=== PATIENT | male | born 1970 | race Caucasian/White ===

== ENCOUNTER 2016-06-11 19:19 | Emergency (ER) | payer SELFPAY ==
[2016-06-11 19:25] VITALS: BP 160/97; BMI 20.4
[2016-06-11 20:14] LABS: BASOPHILS # (AUTO) 0.1 X10^3/uL (0.0-0.1); BASOPHILS % (AUTO) 2.2 % (0.2-1.0); EOSINOPHILS # (AUTO) 0.1 x10^3/uL (0.0-0.2); EOSINOPHILS % (AUTO) 0.9 % (0.9-2.9); HEMATOCRIT 42.2 % (42.0-54.0); HEMOGLOBIN 14.6 g/dL (13.5-18.0); LYMPHOCYTES # (AUTO) 2.5 X10^3/uL (1.3-2.9); LYMPHOCYTES % (AUTO) 37.5 % (21.0-51.0); MEAN CORPUSCULAR HEMOGLOBIN 32.3 pg (27.0-34.0); MEAN CORPUSCULAR HGB CONC 34.6 g/dL (33.0-35.0); MEAN CORPUSCULAR VOLUME 93.4 fL (80.0-100.0); MEAN PLATELET VOLUME 6.2 fL (7.4-11.0); MONOCYTES # (AUTO) 0.3 x10^3/uL (0.3-0.8); NEUTROPHILS # (AUTO) 3.6 x10^3/uL (2.2-4.8); NEUTROPHILS % (AUTO) 54.4 % (42.0-75.0); PLATELET COUNT 291 X10^3/uL (150.0-450.0); RED BLOOD COUNT 4.52 X10^6/uL (4.7-6.0); WHITE BLOOD COUNT 6.6 X10^3/uL (3.6-10.0)
[2016-06-11 20:24] LABS: ALANINE AMINOTRANSFERASE 53 Units/L (12-78); ALBUMIN 4.1 g/dL (3.4-5.0); ALKALINE PHOSPHATASE 72 Units/L (46-116); ASPARTATE AMINO TRANSFERASE 63 Units/L (15-37); BLOOD UREA NITROGEN 9 mg/dL (7-18); CARBON DIOXIDE 26.6 mmol/L (21-32); CHLORIDE 100 mmol/L (98-107); COR NA(FOR HYPERGLY) 141 mmol/L (136-145); CREATININE 0.77 mg/dL (0.70-1.30); GLUCOSE 146 mg/dL (65-99); SODIUM 140 mmol/L (136-145); TOTAL PROTEIN 9.3 g/dL (6.4-8.2); eGFR BLACK RACES > 60 (>60); eGFR NON BLACK RACES > 60 (>60)
--- NOTE | 2016-06-11 20:47 | RAD ---
Chest PA and lateral Indication: Vomiting. Findings: There is no pneumothorax, effusion or consolidation. Heart size is normal. Lungs are hyper inflated. Impression: COPD change without other acute abnormality seen. Reported By:
--- NOTE | 2016-06-11 22:44 | DR.GENAD ---
HPI - PCP Primary Care Physician: kylie - HPI Comment HPI Comment: PATIENT IS 46YR OLD WHITE MALE WITH HISTORY OF HEPATITIS C AND CHRONIC USE OF BCS WHO PRESENTS WITH HEMOPTESIS. ATE TONIGHT. COUGH AND STATED TO SPIT BRIGHT RED BLOOD. HEALING FROM FR[facility] FEMUR ABD TAKES BCS FOR PAIN. SMOKER FOR 25YRS, 1PK PER DAY. NO URI SYMTOMS. BRIGHT RED BLOOD NOTED IN EMESIS BAG IN ED. DENIES PAIN. EGD DONE WHEN HE HAD SURGERY FOR FRACTURE FEMUR, WAS NOT TOLD HE HAS ESOPHAGEAL VARISES. HE DRINK ALCOL OFTEN. - Complaint/Symptoms Chief Complaint Doctors Comments: COUGHING BRIGHT RED BLOOD TONIGHT. Chief Complaint:: "i just finished eating and after eating i coughed and spit up blood. this is the first time this has ever happened." - Nurses notes reviewed Nurses Notes Review: Yes - Source History Provided: Patient - Mode of Arrival Mode of Arrival: Ambulatory - Timing Onset of Chief Complaint: 06/11/16 Came on: Suddenly - Duration Duration: Constant Duration: Minutes - Severity Severity: Moderate PMH - PMH Past Medical History: No Past Medical History Comment: hepatitis c Past Surgical History: Yes Surgical History: Ortho Surgery - Family History History of Family Medical Conditions: No - Social History Type of Tobacco Use: Cigarettes Alcohol Use: Heavy, DAILY Do you use any recreational Drugs:: No Lives With: Mom Lives Where: Home - infectious screening Have you traveled outside the country in the last 6 months?: No Isolation: Standard ROS - Review of Systems Constitutional: No Symptoms Reported Eyes: No Symptoms Reported ENTM: negative: Ear Pain, Nose Discharge, Nose Congestion, Throat Pain Respiratoy: Non-Productive Cough, Hemoptysis. negative: Short of Breath, Wheezing Cardiovascular: No Symptoms Reported Gastrointestinal/Abdominal: No Symptoms Reported. negative: Abdominal Pain, Nausea Genitourinary: No Symptoms Reported. negative: Dysuria, Frequency, Hematuria Neurological: No Symptoms Reported Musculoskeletal: No Symptoms Reported Integumentary: No Symptoms Reported Hematologic/Lymphatic: No Symptoms Reported Endocrine: No Symptoms Reported All Other Systems: Reviewed and Negative PE - Vital Signs Vitals: Temperature 98.0 F Pulse Rate 115 Respiratory Rate 16 Blood Pressure 160/97 O2 Sat by Pulse Oximetry 98 - General Limitations: No Limitations General Appearance: Alert - Head Head Exam: Normal Inspection - Eyes Eye exam: Normal Appearance - ENT ENT Exam: Normal External Ear Exam External Ear Exam: Normal External Inspection TM/Canal Exam: Bilateral Normal Nose Exam: Normal Nose Exam Mouth Exam: Normal Inspection Throat Exam: Normal Inspection - Neck Neck Exam: Trachea Midline - Chest Chest Inspection: Symmetric Chest Wall Rise - Respiratory Respiratory Exam: Normal Lung Sounds Bilat Respiratory Exam: Bilateral Rhonchi, Lower Rhonchi - Cardiovascular Cardiovascular Exam: Regular Rate, Normal Rhythm, Normal Heart Sounds - Abdominal Exam Abdominal Exam: Normal Bowel Sounds, Soft. negative: Tenderness - Extremities Extremities Exam: Normal Inspection - Back Back Exam: Normal Inspection - Neurologic Neurological Exam: Alert, Oriented X3 - Psychiatric Psychiatric Exam: Anxious - Skin Skin Exam: Normal Color MDM - Additional Information Additional Information Obtained From: Family - Differential Diagnosis Differential Diagnosis: HEMOPTESIS Course - Treatment Treatment: SEE ORDERS. PATIENT DID NOT WISH TO BE TRANSFER TO A FACILITY WITH PULMONOLOGY DR. ZAMAN. - Education/Counseling Education/Counseling: Patient, Family, Education Educated On: Diagnosis ROR - Labs Reviewed Laboratory Results Reviewed?: Yes Result Diagrams: 06/11/16 20:05 06/11/16 20:05 Laboratory: WBC 6.6 X10^3/uL (3.6-10.0) 06/11/16 20:05 RBC 4.52 X10^6/uL (4.7-6.0) L 06/11/16 20:05 Hgb 14.6 g/dL (13.5-18.0) 06/11/16 20:05 Hct 42.2 % (42.0-54.0) 06/11/16 20:05 MCV 93.4 fL (80.0-100.0) 06/11/16 20:05 MCH 32.3 pg (27.0-34.0) 06/11/16 20:05 MCHC 34.6 g/dL (33.0-35.0) 06/11/16 20:05 RDW 14.0 % (11.6-16.5) 06/11/16 20:05 Plt Count 291 X10^3/uL (150.0-450.0) 06/11/16 20:05 MPV 6.2 fL (7.4-11.0) L 06/11/16 20:05 Neut % 54.4 % (42.0-75.0) 06/11/16 20:05 Lymph % 37.5 % (21.0-51.0) 06/11/16 20:05 [place] % 5.0 % (0.0-13.0) 06/11/16 20:05 Eos % 0.9 % (0.9-2.9) 06/11/16 20:05 Baso % 2.2 % (0.2-1.0) H 06/11/16 20:05 Neut # 3.6 x10^3/uL (2.2-4.8) 06/11/16 20:05 Lymph # 2.5 X10^3/uL (1.3-2.9) 06/11/16 20:05 [place] # 0.3 x10^3/uL (0.3-0.8) 06/11/16 20:05 Eos # 0.1 x10^3/uL (0.0-0.2) 06/11/16 20:05 Baso # 0.1 X10^3/uL (0.0-0.1) 06/11/16 20:05 Absolute Nucleated RBC 0.1 /100WBC 06/11/16 20:05 INR Target Range - 06/11/16 20:05 INR 0.94 (0.8-1.3) 06/11/16 20:05 PTT 25.9 SECONDS (22.9-36.5) 06/11/16 20:05 PTT Comment - 06/11/16 20:05 Sodium 140 mmol/L (136-145) 06/11/16 20:05 Corrected Sodium 141 mmol/L (136-145) 06/11/16 20:05 Potassium 3.5 mmol/L (3.5-5.1) 06/11/16 20:05 Chloride 100 mmol/L (98-107) 06/11/16 20:05 Carbon Dioxide 26.6 mmol/L (21-32) 06/11/16 20:05 BUN 9 mg/dL (7-18) 06/11/16 20:05 Creatinine 0.77 mg/dL (0.70-1.30) 06/11/16 20:05 Est GFR (MDRD) Af Amer > 60 (>60) 06/11/16 20:05 Est GFR (MDRD) Non-Af > 60 (>60) 06/11/16 20:05 Glucose 146 mg/dL (65-99) H 06/11/16 20:05 Calcium 9.0 mg/dL (8.5-10.1) 06/11/16 20:05 Corrected Calcium TNP 06/11/16 20:05 Total Bilirubin 0.30 mg/dL (0.2-1.0) 06/11/16 20:05 AST 63 Units/L (15-37) H 06/11/16 20:05 ALT 53 Units/L (12-78) 06/11/16 20:05 Alkaline Phosphatase 72 Units/L (46-116) 06/11/16 20:05 Total Protein 9.3 g/dL (6.4-8.2) H 06/11/16 20:05 Albumin 4.1 g/dL (3.4-5.0) 06/11/16 20:05 Globulin 5.2 g/dL (2.5-4.5) H 06/11/16 20:05 Albumin/Globulin Ratio 0.8 Ratio (1.1-2.1) L 06/11/16 20:05 - XRAY XRAY Interpreted by: Radiologist XRAY Findings: REPORT NOTED AND DISCUSS WITH PATIENT. - Diagnosis Discharge Problem: Hemoptysis - Discharge Plan Disposition: AGAINST MEDICAL ADVICE Condition: Stable - Follow ups/Referrals Follow ups/Referrals: NFD,None [Primary Care Provider] - 3 days - Instructions
[2016-06-11] MEDS ORDERED: NS 100 ML IV 100 ML IV ONE (23:41)
--- NOTE | 2016-06-12 00:25 | CT ---
CT chest with contrast Indication: Hemoptysis after eating. Technique: Helical images through the chest after IV contrast. Coronal and sagittal reformats provid ed. Findings: Limited images through the upper abdomen show fatty liver. Review of bone windows shows no osseous abnormality. Old right-sided rib fractures noted. Chest: Aortic arch and branch vessels are normal. No large esophagus abnormality seen, within the li mits of CT. Left ventricular hypertrophy suspected. Heart is otherwise normal. Central pulmonary art eries are patent. If there is no pneumothorax or effusion. No consolidation seen. Minimal scarring in the bases noted. Impression: 1. COPD change. 2. No other acute abnormality to explain the patient's symptoms. 3. Fatty liver suspected. Reported By:
== END 2016-06-12 01:22 | disposition left against medical advice (07) ==
LOC: ER 19:19
DX: R04.2 Hemoptysis (principal)
CPT/HCPCS: 36415; 71020; 71260; 80053; 85025; 85610; 85730; 96365; 99283; A4222

== ENCOUNTER 2016-08-09 21:49 | Emergency (ER) | payer SELFPAY ==
[2016-08-09 21:59] VITALS: BP 144/88; BMI 19.8
--- NOTE | 2016-08-09 22:15 | DR.GENAD ---
HPI - PCP Primary Care Physician: HARESH LIU - Complaint/Symptoms Chief Complaint:: FELL GOING UP DOOR STEPS AND HURTING IN LOWER BACK , HIP AREA , LEFT LEG. - Nurses notes reviewed Nurses Notes Review: Yes - Source History Provided: Patient, Parent - Mode of Arrival Mode of Arrival: Wheelchair - Timing Onset of Chief Complaint: 08/09/16 Came on: Suddenly - Duration Duration: Constant How lon Duration: Hours - Location Location: left leg , left elbow, back - Severity Severity: Mild - Modifying Factors Worsens:: movement - Associated Signs and Symptoms Associated Signs and Symptoms: abrasions - Other History Other History: femur fx, left leg fx in past, chronic back pain PMH - PMH Past Medical History: Yes Past Medical History: Hypertension Past Medical History Comment: HISTORY OF BLOOD CLOTS, LOTS OF BROKE BONES, CHRONIC BACK PAIN Past Surgical History: Yes Surgical History: Ortho Surgery - Family History History of Family Medical Conditions: No - Social History Type of Tobacco Use: Cigarettes Alcohol Use: Heavy Do you use any recreational Drugs:: No Lives With: Mom, Family Lives Where: Home - infectious screening Have you traveled outside the country in the last 6 months?: No Isolation: Standard ROS - Review of Systems Constitutional: No Symptoms Reported Eyes: No Symptoms Reported ENTM: No Symptoms Reported Respiratoy: Dry Cough (COPD) Cardiovascular: No Symptoms Reported Gastrointestinal/Abdominal: No Symptoms Reported Genitourinary: No Symptoms Reported Neurological: No Symptoms Reported Musculoskeletal: Back Pain (chronic), Elbow (left elbow abrasion,), Leg (left leg contusion, ) Integumentary: No Symptoms Reported Hematologic/Lymphatic: No Symptoms Reported Endocrine: No Symptoms Reported Psychiatric: No Symptoms Reported PE - Vital Signs Vitals: Temperature 98.0 F Pulse Rate 74 Respiratory Rate 18 Blood Pressure 144/88 O2 Sat by Pulse Oximetry 100 - General Limitations: No Limitations General Appearance: Alert, In No Apparent Distress - Head Head Exam: Normal Inspection - Eyes Eye exam: Normal Appearance, EOMI. negative: Scleral Icterus, Conjunctival Injection - ENT ENT Exam: Normal Exam External Ear Exam: Normal External Inspection - Neck Neck Exam: Normal Inspection, Full ROM, Trachea Midline - Respiratory Respiratory Exam: negative: Accessory Muscle Use, Respiratory Distress - Extremities Extremities Exam: Full ROM, Tenderness (left leg contusion, left arm abrasion, LBP). negative: Normal Inspection - Back Back Exam: Normal Inspection, Tenderness (Lumbar area) - Neurologic Neurological Exam: Alert, Oriented X3, CN II-XII Intact - Skin Skin Exam: Intact. negative: Normal Color ROR - XRAY XRAY Interpreted by: Radiologist XRAY Findings: pelvis: no fracture Left leg: no acute fx, olld screw fx - Diagnosis Discharge Problem: Contusion Qualifiers: Encounter type: initial encounter Contusion area: lower leg Laterality: left Qualified Code(s): S80.12XA - Contusion of left lower leg, initial encounter Abrasion forearm Qualifiers: Encounter type: initial encounter Laterality: left Qualified Code(s): S50.812A - Abrasion of left forearm, initial encounter - Discharge Plan Condition: Stable Prescriptions: Cephalexin [Keflex] 500 mg PO BID #10 capsule Tramadol HCl [ULTRAM 50 MG *] 50 mg PO TID PRN #12 tab PRN Reason: Pain - Follow ups/Referrals Follow ups/Referrals: NFD,None [Primary Care Provider] - 3 days - Instructions
[2016-08-09] MEDS ORDERED: ULTRAM PO ONE (22:21)
[2016-08-09] MEDS ORDERED: ULTRAM ONE (22:25)
--- NOTE | 2016-08-09 22:58 | RAD ---
Pelvis Indication: Left hip pain after fall Findings: Old right intertrochanteric fracture status post ORIF is noted. No cortical disruption or malalignment of the left hip identified. The pelvic ring is intact. There is no pubic symphyseal or SI joint diastasis. There is discogenic DJD at L4-5 with bulky left-sided bridging osteophytes. Impression: No evidence for acute pelvic or hip fracture. Previous right femoral fixation. L4-5 discogenic DJD. Reported By:
--- NOTE | 2016-08-09 22:58 | RAD ---
EXAM: Left Lower Extremity X-ray INDICATION: Pain COMPARISION: No comparison TECHNIQUE: PA and Lat, 2 view FINDINGS: There is a plate and screw fixation of a distal diaphysis fracture of the fibula. The fracture has h ealed. There is a bone screw located in the distal lower extremity traversing the fibula and tibia. The screw is broken there is a medial malleolar screw which is intact. No acute fracture or dislocat ion. The joint spaces are preserved. The soft tissues are normal. IMPRESSION: The bone screw traversing the fibula and tibia distally is broken. The lucency around the fractured screw suggests an old finding. No acute abnormality. Reported By:
== END 2016-08-09 23:25 | disposition home or self-care (01) | DRG 556 ==
LOC: ER 22:02
DX: M79.605 Pain in left leg (principal); M25.552 Pain in left hip; S80.12XA Contusion of left lower leg, initial encounter; S50.812A Abrasion of left forearm, initial encounter; W10.8XXA Fall (on) (from) other stairs and steps, initial encounter; Y93.89 Activity, other specified; Y92.89 Other specified places as the place of occurrence of the external cause
CPT/HCPCS: 72170; 73590; 99282; 99283

== ENCOUNTER 2017-01-09 09:53 | Inpatient (IN) | payer SELFPAY ==
[2017-01-09] MEDS ORDERED: NS 1000 ML 1,000 ML IV ONE ×2 (10:42→11:47)
[2017-01-09] MEDS ORDERED: NS 1000 ML 1,000 ML ONE ×2 (10:43→11:45)
--- NOTE | 2017-01-09 10:45 | DR.GENAD ---
HPI - PCP Primary Care Physician: HARESH FRANK.. FUR TINTER - Complaint/Symptoms Chief Complaint Doctors Comments: Patient has been sicke for 6-7 days assoicated with fever, nausea. Chief Complaint:: PTS MOTHER STATES " HE HAS BEEB SICK THE NIGHT BEFORE THANKSGIVING WITH A HIGH FEVER AND HE HAS BEEN TALKING TO HIS SELF AND MOVING THINGS AND MOPING THE FLOOR WITH NO WATER.. Self Treatment fo Chief Complaint: PTS SAYS HES AT THE DOCTORS OFFICE ,, PTS MOTHERS DOES NOT KNOW HOW HIGH HIS TEMP HAS BEEN BUT SHE SAYS ITS BEEN HIGH AND HE HAS BEEN COUGHING AND C/O LUNG PAIN .. - Source History Provided: Patient, Family Member - Mode of Arrival Mode of Arrival: Ambulatory - Timing Onset of Chief Complaint: 01/04/17 PMH - PMH Past Medical History: No Past Medical History: Hypertension Past Surgical History: Yes Surgical History: Ortho Surgery Past Surgical History Comment: RIGHT BROKE HIP THAT IS NOT HEALING WELL.. - Family History History of Family Medical Conditions: No - Social History Does patient currently use any type of tobacco product: Yes Have you used tobacco products in the last 12 months: Yes Type of Tobacco Use: None How many years tobacco product used: 30 Does any household member use tobacco: No Alcohol Use: None Do you use any recreational Drugs:: No Lives With: Family Lives Where: Home - infectious screening In the last 2 months have you had wt loss of >10#?: NO Have you had fever, night sweats or hemotysis?: No Have you traveled outside the country in the last 6 months?: No Isolation: Standard ROS - Review of Systems Constitutional: negative: Diaphoresis Eyes: No Symptoms Reported, See HPI ENTM: No Symptoms Reported Respiratoy: No Symptoms Reported Cardiovascular: No Symptoms Reported Gastrointestinal/Abdominal: No Symptoms Reported Genitourinary: No Symptoms Reported Neurological: No Symptoms Reported Musculoskeletal: No Symptoms Reported Integumentary: No Symptoms Reported Endocrine: No Symptoms Reported Psychiatric: No Symptoms Reported All Other Systems: Reviewed and Negative PE - Vital Signs Vitals: Temperature 99.0 F Pulse Rate [Apical] 134 Pulse Rate 146 Respiratory Rate 18 Blood Pressure [Right Arm] 155/68 Blood Pressure 92/51 O2 Sat by Pulse Oximetry 85 - General Limitations: No Limitations General Appearance: Alert, In No Apparent Distress - Head Head Exam: Normal Inspection, Atraumatic - Eyes Eye exam: Normal Appearance, PERRL, EOMI - ENT ENT Exam: Normal Exam, Normal Oropharynx External Ear Exam: Normal External Inspection TM/Canal Exam: Bilateral Normal Nose Exam: Normal Nose Exam Mouth Exam: Normal Inspection Throat Exam: Normal Inspection - Neck Neck Exam: Normal Inspection, Full ROM - Chest Chest Inspection: Normal Inspection - Respiratory Respiratory Exam: Normal Lung Sounds Bilat Respiratory Exam: Bilateral Clear to Auscultation - Cardiovascular Cardiovascular Exam: Regular Rate, Normal Rhythm - Abdominal Exam Abdominal Exam: Normal Inspection, Normal Bowel Sounds Abdominal Tenderness: negative: RUQ, RLQ, LUQ, LLQ, Epigastrium, Suprapubic, Diffuse, Mild, Moderate, Severe, Other - Extremities Extremities Exam: Normal Inspection, Full ROM - Back Back Exam: Normal Inspection - Neurologic Neurological Exam: Alert, Oriented X3, CN II-XII Intact - Psychiatric Psychiatric Exam: Normal Affect, Normal Mood, Depressed - Skin Skin Exam: Warm, Dry, Intact Course - Reevaluation 1st: Unchanged - Consultation Called: 12:00 (Dr Nava agreed to admit for further evaluation and treatment) ROR - Labs Reviewed Result Diagrams: 01/09/17 11:05 01/09/17 11:05 Laboratory: WBC 16.3 X10^3/uL (3.6-10.0) H 01/09/17 11:05 RBC 3.62 X10^6/uL (4.7-6.0) L 01/09/17 11:05 Hgb 11.5 g/dL (13.5-18.0) L 01/09/17 11:05 Hct 32.9 % (42.0-54.0) L 01/09/17 11:05 MCV 90.8 fL (80.0-100.0) 01/09/17 11:05 MCH 31.7 pg (27.0-34.0) 01/09/17 11:05 MCHC 35.0 g/dL (33.0-35.0) 01/09/17 11:05 RDW 12.9 % (11.6-16.5) 01/09/17 11:05 Plt Count 206 X10^3/uL (150.0-450.0) 01/09/17 11:05 Plt Count Comment Adequate (ADEQUATE) 01/09/17 11:05 MPV 7.8 fL (7.4-11.0) 01/09/17 11:05 Neut % 94.0 % (42.0-75.0) H 01/09/17 11:05 Lymph % 2.1 % (21.0-51.0) L 01/09/17 11:05 [place] % 3.5 % (0.0-13.0) 01/09/17 11:05 Eos % 0.0 % (0.9-2.9) L 01/09/17 11:05 Baso % 0.4 % (0.2-1.0) 01/09/17 11:05 Neut # 15.3 x10^3/uL (2.2-4.8) H 01/09/17 11:05 Lymph # 0.3 X10^3/uL (1.3-2.9) L 01/09/17 11:05 [place] # 0.6 x10^3/uL (0.3-0.8) 01/09/17 11:05 Eos # 0.0 x10^3/uL (0.0-0.2) 01/09/17 11:05 Baso # 0.1 X10^3/uL (0.0-0.1) 01/09/17 11:05 Absolute Nucleated RBC 0.0 /100WBC 01/09/17 11:05 Total Counted 100 01/09/17 11:05 Neutrophils % (Manual) 82 % (39-76) H 01/09/17 11:05 Band Neutrophils % 8 % (0-10) 01/09/17 11:05 Lymphocytes % (Manual) 7 % (13-43) L 01/09/17 11:05 Monocytes % (Manual) 3 % (4-9) L 01/09/17 11:05 Plt Morphology Comment Normal (NORMAL) 01/09/17 11:05 RBC Morphology Normal (NORMAL) 01/09/17 11:05 Sodium 119 mmol/L (136-145) L* 01/09/17 11:05 Corrected Sodium TNP 01/09/17 11:05 Potassium 3.3 mmol/L (3.5-5.1) L 01/09/17 11:05 Chloride 83 mmol/L (98-107) L 01/09/17 11:05 Carbon Dioxide 23.4 mmol/L (21-32) 01/09/17 11:05 BUN 44 mg/dL (7-18) H 01/09/17 11:05 Creatinine 1.79 mg/dL (0.70-1.30) H 01/09/17 11:05 Est GFR (MDRD) Af Amer 52 (>60) L 01/09/17 11:05 Est GFR (MDRD) Non-Af 43 (>60) L 01/09/17 11:05 Glucose 87 mg/dL (65-99) 01/09/17 11:05 Calcium 8.3 mg/dL (8.5-10.1) L 01/09/17 11:05 Corrected Calcium 9.4 mg/dL (8.5-10.1) 01/09/17 11:05 Total Bilirubin 0.50 mg/dL (0.2-1.0) 01/09/17 11:05 AST 25 Units/L (15-37) 01/09/17 11:05 ALT 14 Units/L (12-78) 01/09/17 11:05 Alkaline Phosphatase 44 Units/L (46-116) L 01/09/17 11:05 Ammonia 19 umol/L (11-32) 01/09/17 11:05 C-Reactive Protein 298.30 mg/L (0-3.0) H 01/09/17 11:05 Total Protein 7.6 g/dL (6.4-8.2) 01/09/17 11:05 Albumin 2.6 g/dL (3.4-5.0) L 01/09/17 11:05 Globulin 5.0 g/dL (2.5-4.5) H 01/09/17 11:05 Albumin/Globulin Ratio 0.5 Ratio (1.1-2.1) L 01/09/17 11:05 Streptococcus Screen Negative (NEGATIVE) 01/09/17 11:00 - XRAY XRAY Interpreted by: Radiologist (There is a large area of dense airspace consolidatio in the left mid lung A discrete mass is not seen. There is no evidencefor bone destruction, pneumothorax or pleural fluid. The heart is normal in size and the right lung is clear. Impression: Extensive localized airspace consolidation left mid lung compatible with pneumonia.) - Diagnosis Discharge Problem: Hyponatremia, Prerenal azotemia, Hypokalemia Pneumonia involving left lung Qualifiers: Pneumonia type: due to unspecified organism Lung location: lower lobe of lung Qualified Code(s): J18.1 - Lobar pneumonia, unspecified organism - Discharge Plan Condition: Stable - Follow ups/Referrals Follow ups/Referrals: HARESH FRANK [Primary Care Provider] - 3 days - Instructions
[2017-01-09] MEDS ORDERED: TYLENOL 325 MG TAB PO ONE (10:52)
[2017-01-09] MEDS ORDERED: TYLENOL 500 MG TAB EXTRA STRENGTH PO ONE (10:58)
--- NOTE | 2017-01-09 11:06 | RAD ---
Examination: AP portable chest History: Cough and fever Comparison reference: 06/11/2016 Findings: There is a large area of dense airspace consolidation in the left mid lung. A discrete mass is not seen. There is no evidence for bone destruction, pneumothorax or pleural fluid. The heart is normal in size and the right lung is clear. Impression: Extensive localized airspace consolidation left mid lung compatible with pneumonia. Follo w-up to resolution recommended to exclude other etiology. Reported By:
[2017-01-09 11:34] LABS: BASOPHILS # (AUTO) 0.1 X10^3/uL (0.0-0.1); BASOPHILS % (AUTO) 0.4 % (0.2-1.0); HEMATOCRIT 32.9 % (42.0-54.0); HEMOGLOBIN 11.5 g/dL (13.5-18.0); LYMPHOCYTES # (AUTO) 0.3 X10^3/uL (1.3-2.9); LYMPHOCYTES % (AUTO) 2.1 % (21.0-51.0); MEAN CORPUSCULAR HEMOGLOBIN 31.7 pg (27.0-34.0); MEAN CORPUSCULAR VOLUME 90.8 fL (80.0-100.0); MEAN PLATELET VOLUME 7.8 fL (7.4-11.0); MONOCYTES # (AUTO) 0.6 x10^3/uL (0.3-0.8); MONOCYTES % (AUTO) 3.5 % (0.0-13.0); NEUTROPHILS # (AUTO) 15.3 x10^3/uL (2.2-4.8); PLATELET COUNT 206 X10^3/uL (150.0-450.0); RED BLOOD COUNT 3.62 X10^6/uL (4.7-6.0); RED CELL DISTRIBUTION WIDTH 12.9 % (11.6-16.5); WHITE BLOOD COUNT 16.3 X10^3/uL (3.6-10.0)
[2017-01-09] MEDS ORDERED: TORADOL 30 MG VIAL IVP ONE (11:39)
[2017-01-09 11:41] LABS: BLOOD UREA NITROGEN 44 mg/dL (7-18); CALCIUM 8.3 mg/dL (8.5-10.1); CARBON DIOXIDE 23.4 mmol/L (21-32); CHLORIDE 83 mmol/L (98-107); CREATININE 1.79 mg/dL (0.70-1.30); eGFR BLACK RACES 52 (>60); eGFR NON BLACK RACES 43 (>60)
[2017-01-09] MEDS ORDERED: TORADOL 30 MG VIAL ONE (11:43)
[2017-01-09 11:45] LABS: ALANINE AMINOTRANSFERASE 14 Units/L (12-78); ALBUMIN 2.6 g/dL (3.4-5.0); ALKALINE PHOSPHATASE 44 Units/L (46-116); ASPARTATE AMINO TRANSFERASE 25 Units/L (15-37); COR CA(FOR HYPOALB) 9.4 mg/dL (8.5-10.1); TOTAL PROTEIN 7.6 g/dL (6.4-8.2)
[2017-01-09 11:51] LABS: SODIUM 119 mmol/L (136-145)
[2017-01-09 12:03] LABS: BAND NEUTROPHILS % 8 % (0-10); PLATELET MORPHOLOGY COMMENT NORMAL (NORMAL)
[2017-01-09] MEDS: LEVAQUIN PREMIX IV 750 MG 750 MG/150 ML BAG IV SCH (12:23)
[2017-01-09] MEDS ORDERED: TUSSIONEX PENNKINETIC SUSP PO PRN (12:33)
[2017-01-09] MEDS ORDERED: PATIENT'S HOME MEDICATION (Acetaminophen With Codeine [Tylenol W/Codeine #4 (300 Mg/60 Mg) PO SCH (12:45)
[2017-01-09] MEDS ORDERED: TYLENOL #3 TAB (W/CODEINE) PO SCH (13:00)
[2017-01-09] MEDS: NICOTINE PATCH TD SCH (14:27)
[2017-01-09] MEDS: TYLENOL #3 TAB (W/CODEINE) PO SCH ×2 (14:45→19:19)
[2017-01-09] MEDS: ZOSYN VIAL 4.5 GM 4.5 GM in NS 100 ML IV + SPIKE MINIBAG* 100 ML IV SCH ×2 (14:49→21:56)
[2017-01-09] MEDS: FLEXERIL TAB 10 MG PO SCH ×2 (14:49→21:45)
[2017-01-09 16:37] LABS: BLOOD UREA NITROGEN 40 mg/dL (7-18); CALCIUM 8.3 mg/dL (8.5-10.1); CARBON DIOXIDE 22.7 mmol/L (21-32); CHLORIDE 86 mmol/L (98-107); CREATININE 1.46 mg/dL (0.70-1.30); eGFR BLACK RACES > 60 (>60); eGFR NON BLACK RACES 55 (>60)
[2017-01-09 16:38] LABS: SODIUM 122 mmol/L (136-145)
[2017-01-09] MEDS ORDERED: SALINE 3% 15 ML NEB TX ONE (16:40)
[2017-01-09] MEDS: XOPENEX 1.25 MG/3 ML NEBULE NEB SCH (17:10)
[2017-01-09 17:16] VITALS: BMI 20.4
[2017-01-09] MEDS ORDERED: FLUVIRIN IM ONE (17:16)
[2017-01-09] MEDS ORDERED: K-RIDER 10 MEQ/NS 100 ML 10 MEQ/100 ML BAG IV PRN (18:01)
[2017-01-09] MEDS ORDERED: POTASSIUM CHLORIDE LIQ 20 MEQ UDC PO PRN (18:01)
[2017-01-09] MEDS ORDERED: MAG-OX TAB PO PRN (18:01)
[2017-01-09] MEDS ORDERED: K-LYTE EFFERVESCENT PO PRN (18:01)
[2017-01-09] MEDS: NS 1000 ML 1,000 ML IV SCH (18:07)
[2017-01-09] MEDS: MAGNESIUM SULFATE 1 GM/100 mL PREMIX 1 GM/100 ML BAG IV PRN ×4 (18:46→23:11)
[2017-01-09] MEDS: BENADRYL CAP 50 MG PO SCH (20:28)
[2017-01-10] MEDS: XOPENEX 1.25 MG/3 ML NEBULE NEB SCH ×4 (00:24→17:10)
[2017-01-10] MEDS: TYLENOL #3 TAB (W/CODEINE) PO SCH ×4 (00:39→19:31)
[2017-01-10] MEDS: MAGNESIUM SULFATE 1 GM/100 mL PREMIX 1 GM/100 ML BAG IV PRN (00:39)
[2017-01-10] MEDS: NS 1000 ML 1,000 ML IV SCH ×3 (05:25→21:45)
[2017-01-10] MEDS: FLEXERIL TAB 10 MG PO SCH ×3 (05:47→22:15)
[2017-01-10] MEDS: ZOSYN VIAL 4.5 GM 4.5 GM in NS 100 ML IV + SPIKE MINIBAG* 100 ML IV SCH ×3 (05:49→22:15)
[2017-01-10 06:28] LABS: BASOPHILS % (AUTO) 0.2 % (0.2-1.0); HEMATOCRIT 34.5 % (42.0-54.0); HEMOGLOBIN 12.1 g/dL (13.5-18.0); LYMPHOCYTES # (AUTO) 0.8 X10^3/uL (1.3-2.9); LYMPHOCYTES % (AUTO) 5.2 % (21.0-51.0); MEAN CORPUSCULAR HEMOGLOBIN 32.1 pg (27.0-34.0); MEAN CORPUSCULAR HGB CONC 35.2 g/dL (33.0-35.0); MEAN CORPUSCULAR VOLUME 91.4 fL (80.0-100.0); MEAN PLATELET VOLUME 8.4 fL (7.4-11.0); MONOCYTES # (AUTO) 0.9 x10^3/uL (0.3-0.8); NEUTROPHILS # (AUTO) 13.7 x10^3/uL (2.2-4.8); NEUTROPHILS % (AUTO) 88.6 % (42.0-75.0); PLATELET COUNT 220 X10^3/uL (150.0-450.0); RED BLOOD COUNT 3.77 X10^6/uL (4.7-6.0); WHITE BLOOD COUNT 15.5 X10^3/uL (3.6-10.0)
[2017-01-10 06:39] LABS: ALANINE AMINOTRANSFERASE 13 Units/L (12-78); ALBUMIN 2.4 g/dL (3.4-5.0); ALKALINE PHOSPHATASE 62 Units/L (46-116); ASPARTATE AMINO TRANSFERASE 25 Units/L (15-37); BLOOD UREA NITROGEN 24 mg/dL (7-18); CALCIUM 8.6 mg/dL (8.5-10.1); CHLORIDE 88 mmol/L (98-107); COR CA(FOR HYPOALB) 9.9 mg/dL (8.5-10.1); CREATININE 0.81 mg/dL (0.70-1.30); TOTAL PROTEIN 7.4 g/dL (6.4-8.2); eGFR BLACK RACES > 60 (>60); eGFR NON BLACK RACES > 60 (>60)
[2017-01-10 06:50] LABS: SODIUM 125 mmol/L (136-145)
--- NOTE | 2017-01-10 06:53 | RAD ---
HISTORY: Follow-up pneumonia Study: Chest AP portable Comparison: 01/09/2017 Findings: The patient is rotated to the left. The heart is within normal limits in size. No congestive heart fa ilure is noted. The right lung is clear. Left mid lung consolidation is again identified most consist ent with pneumonia. It is unchanged in appearance when compared with the prior examination. Follow-up until complete resolution is recommended in order to exclude underlying neoplasm. The bony thorax is unremarkable. IMPRESSION: No change left mid lung consolidating pneumonia. Follow-up until complete resolution is recommended i n order to exclude underlying neoplasm Reported By:
[2017-01-10] MEDS ORDERED: ZESTRIL TAB 20 MG ONE (08:34)
[2017-01-10] MEDS ORDERED: LEXAPRO ONE (08:34)
[2017-01-10] MEDS: LEXAPRO PO SCH (08:50)
[2017-01-10] MEDS: LEVAQUIN PREMIX IV 750 MG 750 MG/150 ML BAG IV SCH (08:50)
[2017-01-10] MEDS: ZESTRIL TAB 20 MG PO SCH (08:50)
[2017-01-10] MEDS: NICOTINE PATCH TD SCH (08:50)
[2017-01-10] MEDS: POTASSIUM CHL 60 MEQ/NS 0.45% 500 ML IV PRN (10:40)
[2017-01-10] MEDS ORDERED: MOTRIN TAB 800 MG PO PRN (11:23)
[2017-01-10] MEDS ORDERED: KAOPECTATE (NEW FORMULA) PO PRN (11:23)
[2017-01-10] MEDS ORDERED: MAALOX or MYLANTA PO PRN (11:23)
[2017-01-10] MEDS ORDERED: MILK OF MAGNESIA PO PRN (11:23)
[2017-01-10] MEDS ORDERED: PHENOBARBITAL SODIUM INJ 65 MG VIAL IM PRN (11:23)
[2017-01-10] MEDS ORDERED: LIBRIUM PO PRN (11:23)
--- NOTE | 2017-01-10 12:35 | CT ---
History: Hyponatremia and fever Study: CT head without contrast. Comparison: None Findings: The ventricles and sulci are mildly prominent without mass effect. There is no hemorrhage o r mass or edema or subdural collection of fluid. The calvarium is intact. The paranasal sinuses are i ncompletely visualized but there is mucosal thickening seen in the right maxillary sinus. Impression: 1. No acute intracranial disease. Mild atrophy. 2. Partially visualized right maxillary sinus disease Reported By:
[2017-01-10] MEDS: MAGNESIUM SULFATE 50% INJ IM SCH ×2 (13:39→21:45)
[2017-01-10] MEDS: PHENOBARBITAL TAB 30 MG (32.4MG) PO SCH ×3 (13:40→20:34)
[2017-01-10] MEDS: BENADRYL CAP 50 MG PO SCH (20:35)
[2017-01-10] MEDS ORDERED: AMBIEN PO SCH (21:00)
[2017-01-10] MEDS ORDERED: NS IV ONE (21:21)
[2017-01-11] MEDS ORDERED: VALIUM INJ IVP PRN ×2 (00:59→01:27)
[2017-01-11] MEDS ORDERED: BENADRYL INJ 50 MG VIAL IVP STA (01:03)
[2017-01-11] MEDS ORDERED: HALDOL INJ IM STA (01:04)
[2017-01-11] MEDS: XOPENEX 1.25 MG/3 ML NEBULE NEB SCH ×4 (01:07→17:06)
[2017-01-11] MEDS: TYLENOL #3 TAB (W/CODEINE) PO SCH ×4 (01:23→20:30)
[2017-01-11] MEDS: MAGNESIUM SULFATE 50% INJ IM SCH ×3 (03:53→20:30)
[2017-01-11] MEDS: FLEXERIL TAB 10 MG PO SCH ×3 (05:18→21:48)
[2017-01-11] MEDS: ZOSYN VIAL 4.5 GM 4.5 GM in NS 100 ML IV + SPIKE MINIBAG* 100 ML IV SCH ×3 (05:18→21:49)
[2017-01-11 06:06] LABS: ALANINE AMINOTRANSFERASE 14 Units/L (12-78); ALBUMIN 2.1 g/dL (3.4-5.0); ALKALINE PHOSPHATASE 57 Units/L (46-116); ASPARTATE AMINO TRANSFERASE 28 Units/L (15-37); BLOOD UREA NITROGEN 12 mg/dL (7-18); CALCIUM 8.7 mg/dL (8.5-10.1); CARBON DIOXIDE 25.8 mmol/L (21-32); CHLORIDE 97 mmol/L (98-107); COR CA(FOR HYPOALB) 10.2 mg/dL (8.5-10.1); CREATININE 0.63 mg/dL (0.70-1.30); SODIUM 132 mmol/L (136-145); TOTAL PROTEIN 6.6 g/dL (6.4-8.2); eGFR BLACK RACES > 60 (>60); eGFR NON BLACK RACES > 60 (>60)
[2017-01-11 06:09] LABS: BASOPHILS % (AUTO) 0.2 % (0.2-1.0); EOSINOPHILS % (AUTO) 0.1 % (0.9-2.9); HEMATOCRIT 32.2 % (42.0-54.0); HEMOGLOBIN 11.2 g/dL (13.5-18.0); LYMPHOCYTES # (AUTO) 1.1 X10^3/uL (1.3-2.9); LYMPHOCYTES % (AUTO) 9.8 % (21.0-51.0); MEAN CORPUSCULAR HEMOGLOBIN 31.9 pg (27.0-34.0); MEAN CORPUSCULAR HGB CONC 34.7 g/dL (33.0-35.0); MEAN CORPUSCULAR VOLUME 91.9 fL (80.0-100.0); MEAN PLATELET VOLUME 8.1 fL (7.4-11.0); MONOCYTES # (AUTO) 1.3 x10^3/uL (0.3-0.8); MONOCYTES % (AUTO) 11.3 % (0.0-13.0); NEUTROPHILS # (AUTO) 8.8 x10^3/uL (2.2-4.8); NEUTROPHILS % (AUTO) 78.6 % (42.0-75.0); PLATELET COUNT 290 X10^3/uL (150.0-450.0); RED CELL DISTRIBUTION WIDTH 13.3 % (11.6-16.5); WHITE BLOOD COUNT 11.2 X10^3/uL (3.6-10.0)
--- NOTE | 2017-01-11 09:02 | DR.H&P ---
H&P - History & Physical for Day of: H&P Date: 01/09/17 - Chief Complaint Chief Complaint: PTS MOTHER STATES " HE HAS BEEN SICK THE NIGHT BEFORE WITH A HIGH FEVER AND HE HAS BEEN TALKING TO HIMSELF AND MOVING THINGS AND MOPING THE FLOOR WITH NO WATER." N/V/D - Allergies Allergies/Adverse Reactions: Allergies Allergy/AdvReac Type Severity Reaction Status Date / Time No Known Drug Allergies Allergy Verified 01/09/17 10:00 - History of Present Illness History of Present Illness: patient is a 46-year-old white male who was an ER admission after presenting with family stating patient has had confusion been sick since . Patient's mother states he's had nausea vomiting diarrhea, delusional behavior.patient has a past medical history of hepatitis and cirrhosis he is currently not on any medication for chronic liver disease. Patient also had a history of daily alcohol use and multi-joint osteoarthritis, depression and hypertension. The patient's chest x-ray on performed in the ER revealed a pneumonia. Plan to admit for further evaluation of respiratory illness, altered mental status, dehydration with electrolyte imbalance. - Past Medical History Past Medical History: Anxiety, Arthritis, Cirrhosis, Depression, Hypertension - Past Surgical History Surgical History: Ortho Surgery - Family History Family Medical History: Cancer, [place], Hypertension - Social History Does patient currently use any type of tobacco product: Yes Have you used tobacco products in the last 12 months: Yes Type of Tobacco Use: Cigarettes How many years tobacco product used: 30 Does any household member use tobacco: Yes Alcohol Use: Heavy Drug Use: None - Medications Home Medications: Acetaminophen with Codeine [Tylenol w/Codeine #4 (300 mg/60 mg)] 1 tab PO Q6H [History Confirmed 01/09/17] Cyclobenzaprine HCl [FLEXERIL 10 MG *] 1 tab PO TID 01/09/17 [History Confirmed 01/09/17] Diphenhydramine HCl 1 tab PO HS 01/09/17 [History Confirmed 01/09/17] Escitalopram Oxalate [Lexapro] 1 tab PO DAILY 01/09/17 [History Confirmed ] Lisinopril 1 tab PO DAILY 01/09/17 [History Confirmed 01/09/17] - Review of Systems Constitutional: Fever, Weakness, Malaise Eyes: No Symptoms Reported ENT: No Symptoms Reported Respiratory: Cough, Shortness of Breath, SOB with Excertion, Sputum, Wheezing Cardiovascular: No Symptoms Reported Gastrointestinal: Nausea, Vomiting, Abdominal Pain, Diarrhea Genitourinary: No Symptoms Reported Musculoskeletal: Shoulder Pain, Back Pain, Leg Pain, Neck Pain Skin: No Symptoms Reported Neurological: Weakness, Confusion - Physical Exam Vital Signs: Temperature 98.6 F Pulse Rate [Apical] 93 Pulse Rate 105 Respiratory Rate 22 Blood Pressure [Left Arm] 126/78 Blood Pressure [Right Arm] 130/73 Blood Pressure 92/51 O2 Sat by Pulse Oximetry 100 Oriented: Person Eyes: Normal Ear: Normal Nose: Normal Throat: Dry Respiratory: Rhonchi Throughout, RLL Diminished, LLL Diminished Cardiovascular: Tachycardia : Normal Auscultation: Bowel Sounds: Increased Palpation: Normal Tenderness: Epigastric Skin: Decreased Turgur Musculoskeletal: Right, Left, Shoulder, Hip, Knee, Back:Thoracic, Back:Lumbar Psychiatric: Anxiety Affect: Anxious Speech Pattern: Clear - Assessment/Plan (1) Pneumonia involving left lung Qualifiers: Pneumonia type: due to unspecified organism Lung location: lower lobe of lung Qualified Code(s): J18.1 - Lobar pneumonia, unspecified organism Status: Acute Plan: admit to ICU, blood and sputum cultures on admission, pneumonia protocol with IV antibiotics, respiratory failure therapy, supplemental O2, repeat a.m. 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
[2017-01-11] MEDS ORDERED: LEXAPRO ONE (09:53)
[2017-01-11] MEDS ORDERED: ZESTRIL TAB 20 MG ONE (09:53)
[2017-01-11] MEDS: LEXAPRO PO SCH (10:01)
[2017-01-11] MEDS: ZESTRIL TAB 20 MG PO SCH (10:01)
[2017-01-11] MEDS: LEVAQUIN PREMIX IV 750 MG 750 MG/150 ML BAG IV SCH (10:02)
[2017-01-11] MEDS: THIAMINE HCL INJ IM SCH (10:02)
[2017-01-11] MEDS: NICOTINE PATCH TD SCH (10:02)
[2017-01-11] MEDS: NS 1000 ML 1,000 ML IV SCH (12:41)
[2017-01-11] MEDS: BENADRYL CAP 50 MG PO SCH (20:30)
[2017-01-12] MEDS: XOPENEX 1.25 MG/3 ML NEBULE NEB SCH ×4 (01:00→16:02)
[2017-01-12] MEDS: TYLENOL #3 TAB (W/CODEINE) PO SCH ×4 (02:00→19:39)
[2017-01-12] MEDS: NS 1000 ML 1,000 ML IV SCH ×2 (02:11→17:14)
[2017-01-12] MEDS: MAGNESIUM SULFATE 50% INJ IM SCH (04:45)
[2017-01-12] MEDS: FLEXERIL TAB 10 MG PO SCH ×3 (05:05→21:27)
[2017-01-12] MEDS: ZOSYN VIAL 4.5 GM 4.5 GM in NS 100 ML IV + SPIKE MINIBAG* 100 ML IV SCH ×3 (05:06→21:27)
[2017-01-12] MEDS ORDERED: LEXAPRO ONE (08:42)
[2017-01-12] MEDS ORDERED: ZESTRIL TAB 20 MG ONE (08:43)
[2017-01-12] MEDS: LEVAQUIN PREMIX IV 750 MG 750 MG/150 ML BAG IV SCH (09:27)
[2017-01-12] MEDS: ZESTRIL TAB 20 MG PO SCH (09:27)
[2017-01-12] MEDS: THIAMINE HCL INJ IM SCH (09:27)
[2017-01-12] MEDS: NICOTINE PATCH TD SCH (09:28)
[2017-01-12] MEDS: LEXAPRO PO SCH (09:28)
[2017-01-12 09:56] LABS: ALANINE AMINOTRANSFERASE 13 Units/L (12-78); ALKALINE PHOSPHATASE 55 Units/L (46-116); ASPARTATE AMINO TRANSFERASE 26 Units/L (15-37); BASOPHILS % (AUTO) 0.3 % (0.2-1.0); BLOOD UREA NITROGEN 6 mg/dL (7-18); CALCIUM 8.7 mg/dL (8.5-10.1); CARBON DIOXIDE 29.1 mmol/L (21-32); CHLORIDE 100 mmol/L (98-107); COR CA(FOR HYPOALB) 10.3 mg/dL (8.5-10.1); CREATININE 0.59 mg/dL (0.70-1.30); EOSINOPHILS % (AUTO) 0.5 % (0.9-2.9); HEMATOCRIT 33.1 % (42.0-54.0); HEMOGLOBIN 11.5 g/dL (13.5-18.0); LYMPHOCYTES # (AUTO) 1.1 X10^3/uL (1.3-2.9); LYMPHOCYTES % (AUTO) 10.7 % (21.0-51.0); MEAN CORPUSCULAR HEMOGLOBIN 31.8 pg (27.0-34.0); MEAN CORPUSCULAR HGB CONC 34.8 g/dL (33.0-35.0); MEAN CORPUSCULAR VOLUME 91.4 fL (80.0-100.0); MEAN PLATELET VOLUME 7.5 fL (7.4-11.0); MONOCYTES # (AUTO) 0.9 x10^3/uL (0.3-0.8); MONOCYTES % (AUTO) 9.3 % (0.0-13.0); NEUTROPHILS # (AUTO) 7.9 x10^3/uL (2.2-4.8); NEUTROPHILS % (AUTO) 79.2 % (42.0-75.0); PLATELET COUNT 389 X10^3/uL (150.0-450.0); RED BLOOD COUNT 3.62 X10^6/uL (4.7-6.0); RED CELL DISTRIBUTION WIDTH 13.6 % (11.6-16.5); SODIUM 136 mmol/L (136-145); TOTAL PROTEIN 6.5 g/dL (6.4-8.2); WHITE BLOOD COUNT 9.9 X10^3/uL (3.6-10.0); eGFR BLACK RACES > 60 (>60); eGFR NON BLACK RACES > 60 (>60)
--- NOTE | 2017-01-12 14:07 | RAD ---
Examination: Chest, PA and lateral views History: Pneumonia, left chest pain Comparison reference: 01/10/2017 Findings: Extensive confluent opacification involves much of the left upper lobe as before. The diaph ragm is slightly more distinct today, suggesting is interval aeration in the left base. Bilateral ple ural effusions are present. Heart size remains normal with no pneumothorax. Impression: Persistent pneumonia left lung. Minimal improvement suggested. A small right pleural effu jethro is now identified. Reported By:
[2017-01-12] MEDS: BENADRYL CAP 50 MG PO SCH (21:27)
[2017-01-13] MEDS: XOPENEX 1.25 MG/3 ML NEBULE NEB SCH ×4 (00:42→17:30)
[2017-01-13] MEDS: TYLENOL #3 TAB (W/CODEINE) PO SCH ×4 (01:11→20:42)
[2017-01-13] MEDS: NS 1000 ML 1,000 ML IV SCH ×2 (05:24→20:00)
[2017-01-13] MEDS: FLEXERIL TAB 10 MG PO SCH ×3 (05:24→21:46)
[2017-01-13] MEDS: ZOSYN VIAL 4.5 GM 4.5 GM in NS 100 ML IV + SPIKE MINIBAG* 100 ML IV SCH ×3 (05:24→21:46)
[2017-01-13 06:11] LABS: BASOPHILS # (AUTO) 0.1 X10^3/uL (0.0-0.1); BASOPHILS % (AUTO) 1.1 % (0.2-1.0); EOSINOPHILS # (AUTO) 0.1 x10^3/uL (0.0-0.2); EOSINOPHILS % (AUTO) 0.5 % (0.9-2.9); HEMATOCRIT 31.7 % (42.0-54.0); HEMOGLOBIN 11.1 g/dL (13.5-18.0); LYMPHOCYTES # (AUTO) 1.8 X10^3/uL (1.3-2.9); LYMPHOCYTES % (AUTO) 16.9 % (21.0-51.0); MEAN CORPUSCULAR HEMOGLOBIN 32.1 pg (27.0-34.0); MEAN CORPUSCULAR VOLUME 91.5 fL (80.0-100.0); MEAN PLATELET VOLUME 7.3 fL (7.4-11.0); MONOCYTES # (AUTO) 1.3 x10^3/uL (0.3-0.8); MONOCYTES % (AUTO) 11.8 % (0.0-13.0); NEUTROPHILS # (AUTO) 7.6 x10^3/uL (2.2-4.8); NEUTROPHILS % (AUTO) 69.7 % (42.0-75.0); PLATELET COUNT 418 X10^3/uL (150.0-450.0); RED BLOOD COUNT 3.47 X10^6/uL (4.7-6.0); RED CELL DISTRIBUTION WIDTH 12.8 % (11.6-16.5); WHITE BLOOD COUNT 10.9 X10^3/uL (3.6-10.0)
[2017-01-13 06:39] LABS: ALANINE AMINOTRANSFERASE 12 Units/L (12-78); ALBUMIN 1.9 g/dL (3.4-5.0); ALKALINE PHOSPHATASE 51 Units/L (46-116); ASPARTATE AMINO TRANSFERASE 25 Units/L (15-37); BLOOD UREA NITROGEN 5 mg/dL (7-18); CALCIUM 8.3 mg/dL (8.5-10.1); CARBON DIOXIDE 28.2 mmol/L (21-32); CHLORIDE 99 mmol/L (98-107); CREATININE 0.57 mg/dL (0.70-1.30); SODIUM 136 mmol/L (136-145); TOTAL PROTEIN 6.4 g/dL (6.4-8.2); eGFR BLACK RACES > 60 (>60); eGFR NON BLACK RACES > 60 (>60)
--- NOTE | 2017-01-13 06:46 | RAD ---
Examination: AP chest History: Pneumonia Comparison reference 01/12/2017 Findings: Continued stable heart size and essentially clear right lung. There is little change in the extensive pleural-parenchymal opacification in the left lower chest. Findings remain consistent with airspace disease and pleural reaction. Impression: No change. Reported By:
[2017-01-13] MEDS: POTASSIUM CHL 40 MEQ/NS 0.45% 500 ML IV PRN (07:06)
[2017-01-13] MEDS ORDERED: ZESTRIL TAB 20 MG ONE (07:58)
[2017-01-13] MEDS ORDERED: LEXAPRO ONE (07:58)
[2017-01-13] MEDS: THIAMINE HCL INJ IM SCH (08:19)
[2017-01-13] MEDS: ZESTRIL TAB 20 MG PO SCH (08:19)
[2017-01-13] MEDS: LEXAPRO PO SCH (08:20)
[2017-01-13] MEDS: NICOTINE PATCH TD SCH (08:20)
[2017-01-13] MEDS: LEVAQUIN PREMIX IV 750 MG 750 MG/150 ML BAG IV SCH (09:52)
[2017-01-13] MEDS ORDERED: PHENOBARBITAL TAB 15 MG (16.2MG) PO SCH (11:23)
[2017-01-13] MEDS: MAGNESIUM SULFATE 1 GM/100 mL PREMIX 1 GM/100 ML BAG IV PRN ×6 (11:37→17:40)
[2017-01-13] MEDS: POTASSIUM CHL 60 MEQ/NS 0.45% 500 ML IV PRN (17:41)
[2017-01-13] MEDS: BENADRYL CAP 50 MG PO SCH (20:43)
[2017-01-14] MEDS: XOPENEX 1.25 MG/3 ML NEBULE NEB SCH ×4 (00:37→16:59)
[2017-01-14] MEDS: TYLENOL #3 TAB (W/CODEINE) PO SCH ×4 (01:20→20:11)
[2017-01-14] MEDS ORDERED: NS 100 ML IV 100 ML IV ONE (05:02)
[2017-01-14] MEDS: ZOSYN VIAL 4.5 GM 4.5 GM in NS 100 ML IV + SPIKE MINIBAG* 100 ML IV SCH ×3 (05:53→22:28)
[2017-01-14] MEDS: FLEXERIL TAB 10 MG PO SCH ×3 (05:53→22:28)
[2017-01-14 06:33] LABS: BASOPHILS % (AUTO) 0.3 % (0.2-1.0); EOSINOPHILS # (AUTO) 0.1 x10^3/uL (0.0-0.2); EOSINOPHILS % (AUTO) 1.1 % (0.9-2.9); HEMATOCRIT 31.7 % (42.0-54.0); HEMOGLOBIN 11.1 g/dL (13.5-18.0); LYMPHOCYTES # (AUTO) 1.6 X10^3/uL (1.3-2.9); LYMPHOCYTES % (AUTO) 17.3 % (21.0-51.0); MEAN CORPUSCULAR HEMOGLOBIN 32.3 pg (27.0-34.0); MEAN CORPUSCULAR VOLUME 92.2 fL (80.0-100.0); MEAN PLATELET VOLUME 7.1 fL (7.4-11.0); MONOCYTES # (AUTO) 0.8 x10^3/uL (0.3-0.8); MONOCYTES % (AUTO) 9.1 % (0.0-13.0); NEUTROPHILS # (AUTO) 6.7 x10^3/uL (2.2-4.8); NEUTROPHILS % (AUTO) 72.2 % (42.0-75.0); PLATELET COUNT 489 X10^3/uL (150.0-450.0); RED BLOOD COUNT 3.43 X10^6/uL (4.7-6.0); WHITE BLOOD COUNT 9.3 X10^3/uL (3.6-10.0)
[2017-01-14 06:47] LABS: ALANINE AMINOTRANSFERASE 13 Units/L (12-78); ALBUMIN 1.8 g/dL (3.4-5.0); ALKALINE PHOSPHATASE 48 Units/L (46-116); ASPARTATE AMINO TRANSFERASE 22 Units/L (15-37); BLOOD UREA NITROGEN 5 mg/dL (7-18); CALCIUM 8.4 mg/dL (8.5-10.1); CHLORIDE 98 mmol/L (98-107); COR CA(FOR HYPOALB) 10.2 mg/dL (8.5-10.1); CREATININE 0.58 mg/dL (0.70-1.30); SODIUM 134 mmol/L (136-145); TOTAL PROTEIN 6.5 g/dL (6.4-8.2); eGFR BLACK RACES > 60 (>60); eGFR NON BLACK RACES > 60 (>60)
--- NOTE | 2017-01-14 09:09 | RAD ---
CHEST RADIOGRAPHS PA AND LATERAL VIEWS CLINICAL HISTORY: 46-year-old male with pneumonia. COMPARISON: Chest radiograph 01/13/2017, 01/12/2017, 06/11/2016. FINDINGS: The cardiopericardial silhouette is stable. Unchanged consolidation within the lingula and posterior left lower lobe with small left effusion. Right lung is clear. No pneumothorax. The lungs are well inflated. Pulmonary vascularity is normal. Imaged osseous structures are intact. Soft tissue s are unremarkable. IMPRESSION: No significant interval change and consolidative processes within the lingula and left lower lobe wit h small left effusion. Reported By:
[2017-01-14] MEDS ORDERED: LEXAPRO ONE (09:29)
[2017-01-14] MEDS ORDERED: ZESTRIL TAB 20 MG ONE (09:29)
[2017-01-14] MEDS: ZESTRIL TAB 20 MG PO SCH (09:43)
[2017-01-14] MEDS: LEVAQUIN PREMIX IV 750 MG 750 MG/150 ML BAG IV SCH (09:43)
[2017-01-14] MEDS: LEXAPRO PO SCH (09:43)
[2017-01-14] MEDS: NICOTINE PATCH TD SCH (09:43)
[2017-01-14] MEDS: POTASSIUM CHL 40 MEQ/NS 0.45% 500 ML IV PRN (09:58)
[2017-01-14] MEDS: MAGNESIUM SULFATE 1 GM/100 mL PREMIX 1 GM/100 ML BAG IV PRN ×2 (09:59→11:23)
[2017-01-14] MEDS: BENADRYL CAP 50 MG PO SCH (21:14)
[2017-01-14] MEDS: NS 1000 ML 1,000 ML IV SCH (21:14)
[2017-01-15] MEDS: XOPENEX 1.25 MG/3 ML NEBULE NEB SCH ×4 (00:32→17:12)
[2017-01-15] MEDS: TYLENOL #3 TAB (W/CODEINE) PO SCH ×4 (01:15→19:34)
[2017-01-15 05:28] LABS: BASOPHILS # (AUTO) 0.2 X10^3/uL (0.0-0.1); BASOPHILS % (AUTO) 1.8 % (0.2-1.0); EOSINOPHILS # (AUTO) 0.2 x10^3/uL (0.0-0.2); HEMATOCRIT 32.5 % (42.0-54.0); HEMOGLOBIN 11.3 g/dL (13.5-18.0); LYMPHOCYTES # (AUTO) 1.1 X10^3/uL (1.3-2.9); LYMPHOCYTES % (AUTO) 11.1 % (21.0-51.0); MEAN CORPUSCULAR HEMOGLOBIN 31.8 pg (27.0-34.0); MEAN CORPUSCULAR HGB CONC 34.7 g/dL (33.0-35.0); MEAN CORPUSCULAR VOLUME 91.7 fL (80.0-100.0); MEAN PLATELET VOLUME 7.5 fL (7.4-11.0); MONOCYTES # (AUTO) 0.9 x10^3/uL (0.3-0.8); MONOCYTES % (AUTO) 9.2 % (0.0-13.0); NEUTROPHILS # (AUTO) 7.6 x10^3/uL (2.2-4.8); NEUTROPHILS % (AUTO) 75.9 % (42.0-75.0); PLATELET COUNT 493 X10^3/uL (150.0-450.0); RED BLOOD COUNT 3.54 X10^6/uL (4.7-6.0); RED CELL DISTRIBUTION WIDTH 12.9 % (11.6-16.5)
[2017-01-15] MEDS: FLEXERIL TAB 10 MG PO SCH ×3 (05:51→21:08)
[2017-01-15] MEDS: ZOSYN VIAL 4.5 GM 4.5 GM in NS 100 ML IV + SPIKE MINIBAG* 100 ML IV SCH ×3 (05:52→22:12)
[2017-01-15] MEDS: NS 1000 ML 1,000 ML IV SCH ×2 (05:52→13:55)
[2017-01-15 07:46] LABS: ALANINE AMINOTRANSFERASE 14 Units/L (12-78); ALBUMIN 1.8 g/dL (3.4-5.0); ALKALINE PHOSPHATASE 46 Units/L (46-116); ASPARTATE AMINO TRANSFERASE 20 Units/L (15-37); BLOOD UREA NITROGEN 6 mg/dL (7-18); CALCIUM 8.4 mg/dL (8.5-10.1); CHLORIDE 100 mmol/L (98-107); COR CA(FOR HYPOALB) 10.2 mg/dL (8.5-10.1); CREATININE 0.57 mg/dL (0.70-1.30); MAGNESIUM 1.3 mg/dL (1.7-2.9); SODIUM 136 mmol/L (136-145); TOTAL PROTEIN 6.5 g/dL (6.4-8.2); eGFR BLACK RACES > 60 (>60); eGFR NON BLACK RACES > 60 (>60)
[2017-01-15] MEDS ORDERED: ZESTRIL TAB 20 MG ONE (09:18)
[2017-01-15] MEDS ORDERED: LEXAPRO ONE (09:18)
[2017-01-15] MEDS: LEXAPRO PO SCH (09:21)
[2017-01-15] MEDS: LEVAQUIN PREMIX IV 750 MG 750 MG/150 ML BAG IV SCH (09:21)
[2017-01-15] MEDS: ZESTRIL TAB 20 MG PO SCH (09:21)
[2017-01-15] MEDS: NICOTINE PATCH TD SCH (09:22)
--- NOTE | 2017-01-15 10:11 | RAD ---
HISTORY: 46-year-old male with pneumonia. Study: Frontal view of the chest. Comparison: Chest radiographs 01/14/2017. Findings: The trachea is midline. The cardiac silhouette is unremarkable. Worsening airspace opacity of the l ingula and left lower lobe with persistent effusion superimposed upon chronic interstitial disease. S oft tissues are unremarkable. Osseous structures are unremarkable. IMPRESSION: 1. Worsening airspace opacities lingula and left lower lobe. Reported By:
[2017-01-15] MEDS ORDERED: MAG-OX TAB PO PRN (19:51)
[2017-01-15] MEDS ORDERED: POTASSIUM CHL 40 MEQ/NS 0.45% 500 ML IV PRN (19:51)
[2017-01-15] MEDS ORDERED: KAOPECTATE (NEW FORMULA) PO PRN (19:51)
[2017-01-15] MEDS ORDERED: MOTRIN TAB 800 MG PO PRN (19:51)
[2017-01-15] MEDS ORDERED: K-RIDER 10 MEQ/NS 100 ML 10 MEQ/100 ML BAG IV PRN (19:51)
[2017-01-15] MEDS ORDERED: MILK OF MAGNESIA PO PRN (19:51)
[2017-01-15] MEDS ORDERED: K-LYTE EFFERVESCENT PO PRN (19:51)
[2017-01-15] MEDS ORDERED: MAGNESIUM SULFATE 1 GM/100 mL PREMIX 1 GM/100 ML BAG IV PRN (19:51)
[2017-01-15] MEDS ORDERED: VALIUM INJ IVP PRN ×2 (19:51)
[2017-01-15] MEDS ORDERED: POTASSIUM CHL 60 MEQ/NS 0.45% 500 ML IV PRN (19:51)
[2017-01-15] MEDS ORDERED: MAALOX or MYLANTA PO PRN (19:51)
[2017-01-15] MEDS ORDERED: TUSSIONEX PENNKINETIC SUSP PO PRN (19:51)
[2017-01-15] MEDS ORDERED: POTASSIUM CHLORIDE LIQ 20 MEQ UDC PO PRN (19:51)
[2017-01-15] MEDS ORDERED: LIBRIUM PO PRN (19:51)
[2017-01-15] MEDS ORDERED: BENADRYL CAP 50 MG PO SCH (21:00)
[2017-01-16] MEDS: XOPENEX 1.25 MG/3 ML NEBULE NEB SCH ×2 (01:18→05:54)
[2017-01-16] MEDS: TYLENOL #3 TAB (W/CODEINE) PO SCH ×3 (01:25→12:15)
[2017-01-16] MEDS ORDERED: NS 1000 ML 1,000 ML IV SCH (04:00)
[2017-01-16 04:58] LABS: BASOPHILS # (AUTO) 0.1 X10^3/uL (0.0-0.1); BASOPHILS % (AUTO) 0.6 % (0.2-1.0); EOSINOPHILS # (AUTO) 0.2 x10^3/uL (0.0-0.2); EOSINOPHILS % (AUTO) 2.3 % (0.9-2.9); HEMATOCRIT 31.7 % (42.0-54.0); LYMPHOCYTES # (AUTO) 1.4 X10^3/uL (1.3-2.9); LYMPHOCYTES % (AUTO) 17.5 % (21.0-51.0); MEAN CORPUSCULAR HGB CONC 34.6 g/dL (33.0-35.0); MEAN CORPUSCULAR VOLUME 92.5 fL (80.0-100.0); MONOCYTES # (AUTO) 0.7 x10^3/uL (0.3-0.8); MONOCYTES % (AUTO) 8.1 % (0.0-13.0); NEUTROPHILS # (AUTO) 5.8 x10^3/uL (2.2-4.8); NEUTROPHILS % (AUTO) 71.5 % (42.0-75.0); PLATELET COUNT 503 X10^3/uL (150.0-450.0); RED BLOOD COUNT 3.42 X10^6/uL (4.7-6.0); RED CELL DISTRIBUTION WIDTH 12.8 % (11.6-16.5); WHITE BLOOD COUNT 8.2 X10^3/uL (3.6-10.0)
[2017-01-16] MEDS: FLEXERIL TAB 10 MG PO SCH (06:16)
[2017-01-16] MEDS: ZOSYN VIAL 4.5 GM 4.5 GM in NS 100 ML IV + SPIKE MINIBAG* 100 ML IV SCH (06:17)
[2017-01-16 06:31] LABS: ALANINE AMINOTRANSFERASE 13 Units/L (12-78); ALBUMIN 1.8 g/dL (3.4-5.0); ALKALINE PHOSPHATASE 47 Units/L (46-116); ASPARTATE AMINO TRANSFERASE 23 Units/L (15-37); BLOOD UREA NITROGEN 6 mg/dL (7-18); CALCIUM 8.5 mg/dL (8.5-10.1); CARBON DIOXIDE 27.3 mmol/L (21-32); CHLORIDE 100 mmol/L (98-107); COR CA(FOR HYPOALB) 10.3 mg/dL (8.5-10.1); CREATININE 0.68 mg/dL (0.70-1.30); MAGNESIUM 1.2 mg/dL (1.7-2.9); SODIUM 135 mmol/L (136-145); TOTAL PROTEIN 6.5 g/dL (6.4-8.2); eGFR BLACK RACES > 60 (>60); eGFR NON BLACK RACES > 60 (>60)
[2017-01-16] MEDS ORDERED: TYLENOL #3 TAB (W/CODEINE) PO ONE ×2 (07:00→12:13)
[2017-01-16] MEDS ORDERED: ZESTRIL TAB 20 MG ONE (07:03)
[2017-01-16] MEDS ORDERED: LEXAPRO ONE (07:03)
--- NOTE | 2017-01-16 07:39 | RAD ---
Examination: Chest, PA and lateral views History: Fever Comparison reference 01/15/2017 Findings: Continued normal heart size with essentially clear right chest. Extensive infiltrate is aga in noted in the left lower lung although slight interval improvement in aeration has occurred. The le ft upper lung remains relatively clear. No complicating pneumothorax is seen. Impression: Interval improvement, no new abnormality demonstrated. Reported By:
[2017-01-16 08:06] VITALS: BP 125/67
[2017-01-16] MEDS ORDERED: ZESTRIL TAB 20 MG PO SCH (09:00)
[2017-01-16] MEDS ORDERED: LEXAPRO PO SCH (09:00)
[2017-01-16] MEDS ORDERED: LEVAQUIN PREMIX IV 750 MG 750 MG/150 ML BAG IV SCH (09:00)
[2017-01-16] MEDS ORDERED: NICOTINE PATCH TD SCH (09:00)
[2017-01-16] MEDS ORDERED: FLUVIRIN IM ONE (10:50)
--- NOTE | 2017-01-16 12:26 | MRI ---
HISTORY: Neck pain and cervical radiculopathy. Noncontrast MRI examination of the cervical spine. Technique: Sagittal T1, sagittal T2, axial T2 weighted images were obtained. Findings: Alignment of the cervical spine is maintained. There is mild cervical spondylosis and facet DJD seen from C3-C7 with diffuse cervical disc desiccation. There is no evidence for an acute fractu re or subluxation. No aggressive bone marrow lesion is seen. There is no evidence for cerebral tonsil lar ectopia. The posterior elements appear diffusely intact. There is no evidence for cord expansion, cord edema, or abnormal cord signal. No intrathecal mass lesions or intrathecal hemorrhage is seen. Motion artifact degrades the quality of this exam. C2 -- C3: No significant disc pathology or foraminal/spinal canal stenosis. C3 -- C4: No significant disc pathology or foraminal/spinal canal stenosis. C4 -- C5: No significant disc pathology or foraminal/spinal canal stenosis. C5 -- C6: Broad-based, left paracentral, disc osteophyte complex which combines with facet DJD to cre ate moderate spinal canal narrowing and moderate bilateral foraminal narrowing. C6 -- C7: No significant disc pathology or foraminal/spinal canal stenosis. C7 -- T1: No significant disc pathology or foraminal/spinal canal stenosis. IMPRESSION: Mild degenerative cervical spondylosis with a posterior disc osteophyte complex at C5-6 which combine s with facet joint DJD creates moderate spinal canal narrowing and foraminal narrowing at C5-6. No ev idence for cervical cord myelomalacia, however. Probable left-sided pleural effusion which can be better evaluated with CT imaging of the chest, as t here is some motion artifact on this exam. No acute fractures or pathologic bone marrow edema appreci ated. No other significant C-spine abnormalities are observed. Reported By:
--- NOTE | 2017-01-16 13:06 | MRI ---
MRI lumbar spine without contrast Indication: Chronic lower back pain Technique: Multisequence, multiplanar MR images of the lumbar spine were obtained without IV contrast . Comparison: None Findings: The exam is moderately degraded by patient motion artifact. Given these limitations, there is diffuse heterogenous marrow signal, nonspecific but suggestive for red marrow reconversion. There is a chronic appearing compression fracture versus prominent superior endplate Schmorl's node of the left L5 vertebral body with approximately 50% height loss. Remaining vertebral body heights and align ment are normal. No acute fracture, subluxation or focal suspicious osseous lesion is identified. The conus terminates normally at L1-L2. The cauda equina is unremarkable. The visualized paraspinal soft tissues demonstrates no gross unexpected findings. T12-L1, L1-L2, L2-L3: Mild disc desiccation. Otherwise, unremarkable. L3-L4: Mild broad-based disc bulge and facet arthropathy without significant canal or foraminal steno sis. L4-L5: There is moderate disc desiccation, mild circumferential disc bulge with prominent bridging le ft-sided osteophyte formation. There is also bilateral facet arthropathy without significant canal or foraminal stenosis. L5-S1: Mild broad-based disc bulge and facet arthropathy with very mild resultant bilateral foraminal narrowing. There is no significant canal stenosis. Impression: Motion limited exam. Degenerative disc disease and facet arthropathy of the lower lumbosacral spine with mild resultant bi lateral neural foraminal narrowing at L5-S1, as detailed above. No high-grade canal or foraminal sten osis is identified at any level. Diffuse heterogenous marrow signal, nonspecific but suggestive for red marrow reconversion. Reported By:
== END 2017-01-16 12:54 | disposition home or self-care (01) | DRG 194 ==
LOC: ER 10:04 → ICU 12:45 → OBS 01-15 20:10
PROVIDERS: ADMIT Internal Medicine; ATTEND Internal Medicine
PROC: 3E0234Z Introduction of Serum, Toxoid and Vaccine into Muscle, Percutaneous Approach (ICD-10-PCS; principal; 2017-01-16)
DX: J18.1 Lobar pneumonia, unspecified organism (principal); E87.1 Hypo-osmolality and hyponatremia; F10.988 Alcohol use, unspecified with other alcohol-induced disorder; R79.89 Other specified abnormal findings of blood chemistry; E87.6 Hypokalemia; B95.1 Streptococcus, group B, as the cause of diseases classified elsewhere; R53.1 Weakness; R06.02 Shortness of breath; K73.8 Other chronic hepatitis, not elsewhere classified; K74.69 Other cirrhosis of liver; Z23 Encounter for immunization
CPT/HCPCS: 36415; 70450; 71010; 71020; 72141; 72148; 80048; 80053; 82140; 83735; 84132; 85025; 86140; 87040; 87070; 87077; 87186; 87205; 87880; 90686; 94640; 96365; 96367; 96374; 96375; 99284; 99285; A4222; J1200; J1885; J1956; J2543; J2560; J3360; J3411; J3475

== ENCOUNTER → 2017-02-08 | Outpatient (CLI) | payer SELFPAY ==
[2017-01-16 08:06] VITALS: BP 125/67
--- NOTE | 2017-02-08 13:22 | RAD ---
History: Shortness of breath Study: PA and lateral chest Comparison: January 16, 2017 Findings: The heart and mediastinum are unremarkable. The right lung is clear. There is resolution of the previously demonstrated infiltrate in the left lower lobe. There is thickening of the left major fissure with a mild left perihilar upper lobe infiltrate, markedly improved also from January 16. There is no pleural effusion. There is no significant bony abnormality. Impression: 1. Resolution of previously demonstrated left lower lobe pneumonia 2. Residual thickening of the left major fissure and improved but persistent mild density in the left perihilar upper lobe. Reported By:
== END ==
LOC: RAD 12:55
PROVIDERS: ATTEND Nurse Practitioner Family
DX: J18.9 Pneumonia, unspecified organism (principal)
CPT/HCPCS: 71020